=== PATIENT | female | born 1995 | race Two or more races ===

== ENCOUNTER 2018-08-24 07:13 | Outpatient (CLI) | payer OTHER ==
[~2018-08-24 07:13] MED LIST: NAPROXEN500 MG PO; ROBAXIN500 MG PO
== END 2018-08-24 07:31 | disposition home or self-care (01) ==
LOC: LAB 07:13
DX: R42 Dizziness and giddiness (principal); R51 Headache; E04.8 Other specified nontoxic goiter

== ENCOUNTER 2018-08-31 06:52 | Outpatient (CLI) | payer OTHER | END 2018-08-31 07:05 | disposition home or self-care (01) | LOC: LAB 06:52 | DX: E06.3 Autoimmune thyroiditis (principal); M32.8 Other forms of systemic lupus erythematosus; R94.8 Abnormal results of function studies of other organs and systems; E55.9 Vitamin D deficiency, unspecified ==

== ENCOUNTER 2018-08-31 08:17 | Outpatient (CLI) | payer OTHER | END 2018-08-31 08:33 | disposition home or self-care (01) | LOC: SONOGRAMA 08:17 | DX: E06.3 Autoimmune thyroiditis (principal); R94.8 Abnormal results of function studies of other organs and systems ==

== ENCOUNTER 2018-10-20 08:43 | Outpatient (CLI) | payer OTHER | END 2018-10-20 08:52 | disposition home or self-care (01) | LOC: LAB 08:43 | DX: N39.0 Urinary tract infection, site not specified (principal); R97.1 Elevated cancer antigen 125 [CA 125] ==

== ENCOUNTER → 2018-12-04 | Outpatient (CLI) | payer OTHER | END | disposition home or self-care (01) | LOC: MAMO-SONO 10:15 | DX: R10.2 Pelvic and perineal pain (principal) ==